=== PATIENT | male | born 1975 | race Caucasian/White ===

== ENCOUNTER → 2020-06-04 11:03 | Outpatient (CLI) | payer BC, SELFPAY ==
[2020-06-05 00:42] LABS: SARS-CoV-2 RNA PCR Negative
== END ==
PROVIDERS: PCP Physician Assistant; Visit Provider Physician Assistant
DX: R05 Cough (principal); Z20.822 Contact with and (suspected) exposure to COVID-19
CPT/HCPCS: C9803; U0003; U0005

== ENCOUNTER → 2020-09-28 03:21 | Outpatient (CLI) | payer BC, SELFPAY ==
[2020-09-28 18:53] LABS: SARS-CoV-2 RNA PCR Negative
== END ==
PROVIDERS: PCP Physician Assistant; Visit Provider Physician Assistant
DX: R05 Cough (principal); Z20.822 Contact with and (suspected) exposure to COVID-19
CPT/HCPCS: C9803; U0003; U0005

== ENCOUNTER 2022-12-08 10:02 | Outpatient (CLI) | payer BC, SELFPAY ==
--- NOTE | ~2022-12-08 | XR_ITS ---
EXAMINATION: XR chest 2V 12/08/2022 10:48 INDICATION: Cough for one weeks PROCEDURE: 2 view chest COMPARISON: 02/16/2020 FINDINGS: The lungs are clear. The cardiomediastinal silhouette is within normal limits. There are no pleural effusions. There is no pneumothorax suspected. IMPRESSION: 1: NO ACUTE CARDIOPULMONARY DISEASE. Reviewed, dictated and finalized at location B.
== END 2022-12-08 10:03 | disposition home or self-care (01) ==
PROVIDERS: PCP Physician Assistant; Visit Provider Physician Assistant
DX: R05.9 Cough, unspecified (principal)
CPT/HCPCS: 71046

== ENCOUNTER 2023-01-20 10:40 | Outpatient (CLI) | payer BC, SELFPAY ==
--- NOTE | ~2023-01-20 | XR_ITS ---
EXAMINATION: XR chest 2V 01/20/2023 11:03 INDICATION: Cough. PROCEDURE: 2 view chest COMPARISON: 12/08/2022 FINDINGS: Interval development of left lower lobe airspace consolidation. The cardiomediastinal silho uette is within normal limits. There are no pleural effusions. There is no pneumothorax suspected. IMPRESSION: 1: Left lower lobe airspace consolidation, suspicious for developing pneumonia. Reviewed, dictated and finalized at location L. HIATRIC ORDERLY IMPRESSION: 1: Left lower lobe airspace consolidation, suspicious for developing pneumonia .
== END 2023-01-20 10:41 | disposition home or self-care (01) ==
PROVIDERS: PCP Physician Assistant; Visit Provider Physician Assistant
DX: R05.9 Cough, unspecified (principal); R91.8 Other nonspecific abnormal finding of lung field
CPT/HCPCS: 71046

== ENCOUNTER 2024-03-26 11:56 | Emergency (ER) | payer OTHER, SELFPAY ==
--- NOTE | ~2024-03-26 | XR_ITS ---
EXAMINATION: XR finger 4th LT min 2V DATE: 03/26/2024 12:31 INDICATION: Left fourth finger injury TECHNIQUE: Dorsal palmar, lateral and 2 oblique views of the left fourth digit were obtained COMPARISON: None FINDINGS: Normal alignment. Nondisplaced spiral versus oblique fracture of the diaphysis of the left fourth mid dle phalanx. The fracture lines in. Extending to near the proximal and distal articular surface canno t exclude involvement of one of the articular surfaces of the normal discrete cortical discontinuity or incongruity identified. No other fractures identified. Joint spaces are normal. Mild soft tissue s welling about the fourth digit. IMPRESSION: 1. Nondisplaced spiral versus oblique fracture of the left fourth middle phalanx potentially with inv olvement of the proximal and/or distal articular surfaces. Reviewed, dictated and finalized at location A. [employer] IMPRESSION: 1. Nondisplaced spiral versus oblique fracture of the left fourth middle phalan x potentially with involvement of the proximal and/or distal articular surfaces .
[2024-03-26 12:14] VITALS: BP 149/82; PULSE 101; RESP 16; TEMP 37.3; O2SAT 97
--- NOTE | 2024-03-26 12:44 | ED.UPPEXIN ---
HPI - Extremity Injury (Upper) General Chief Complaint: Extremity Injury, Upper Stated Complaint: L 4TH FINGER INJURY Time Seen by Provider: 03/26/24 12:52 Source: patient and RN notes reviewed Mode of arrival: ambulatory Limitations: no limitations History of Present Illness HPI narrative: 48-year-old male presents with concern for injury to the 4th finger of the left hand. Reports he was napping his son in to his car seat when his finger got stuck and he pulled it out and since then he has had pain. This happened 1 week ago and he has been wearing a splint. He reports no pain when the finger is still, reports pain with bending it or when he accidentally bumps it. He denies decreased strength, sensation, range of motion MD complaint: injury to: left and finger Related Data Allergies Allergy/AdvReac Type Severity Reaction Status Date / Time Penicillins Allergy Unknown Unknown Verified 03/26/24 12:46 Sulfa (Sulfonamide Allergy Unknown Unknown Verified 03/26/24 12:46 Antibiotics) Review of Systems Review of Systems: CONSTITUTIONAL: Denies malaise, chills, sweats, or fever. SKIN: Denies rash or itching, open skin, laceration, abrasion, redness, warmth, swelling. MUSCULOSKELETAL: Reports left 4th finger pain NEUROLOGIC: Denies numbness, weakness All systems reviewed & are unremarkable except as noted in HPI and below PMFSH Past Medical History Medical History (Updated 03/26/24 @ 12:56 by Gerda Galvez NP) Moderate persistent asthma Family History Family History (System 04/30/21 @ 15:53 by Carlos Sanders) Grandparent Diabetes mellitus Family history of cardiovascular disease Family history of emphysema Family history of congestive heart failure Family history of blood dyscrasia Social History Social History (System 04/30/21 @ 15:53 by Carlos Sanders) Smoking status: Never smoker Alcohol intake: never Comments At time of signature, agree with nursing past medical, surgical, social and family history. There is no relevant family history pertinent to the presenting complaint Exam Narrative: GENERAL: Well-appearing, well-nourished, and in no acute distress. HEAD: Normocephalic EYES: PERRLA, conjunctivae clear NECK: Supple. CHEST: Speaks in full sentences. No respiratory distress. HEART: Regular rate and rhythm. Normal and equal peripheral pulses. EXTREMITIES: 4th digit of left hand has grossly normal strength and sensation. Range of motion grossly normal. No clubbing, cyanosis, or edema noted. Mid digit tenderness. Skin intact. Normal digital cascade with flexion of fingers, median, ulnar and radial nerve intact. Normal sensation of each side of finger. No scissoring. Normal thumb opposition. Good capillary refill and radial pulse. Distal capillary refill less than 3 seconds. SKIN: Warn, dry, intact, pink. No rash NEURO: Alert and oriented x3. PSYCH: Normal mood and affect Course Course Emergency Course: Patient is aware of diagnosis, understands and agrees to treatment plan. Anticipatory guidance given. Patient agrees to follow-up as directed and is aware of reasons to seek care at the emergency department. Portions of this record may have been created with voice recognition software Level of Care: [facility] Visit Vital Signs Vital signs: Vital Signs Temperature 99.1 F 03/26/24 12:14 Pulse Rate 101 H 03/26/24 12:14 Respiratory Rate 16 03/26/24 12:14 Blood Pressure 149/82 H 03/26/24 12:14 Pulse Oximetry 97 03/26/24 12:14 Temperature 99.1 F 03/26/24 12:14 Pulse Rate 101 H 03/26/24 12:14 Respiratory Rate 16 03/26/24 12:14 Blood Pressure 149/82 H 03/26/24 12:14 Pulse Oximetry 97 03/26/24 12:14 Reviewed. MDM - Extremity Injury (Upper) MDM Narrative Medical decision making narrative: I evaluated this patient in the psychiatric. History is obtained from patient who is an independent historian and physical exam was performed.? Available medical records were reviewed. ? Exam findings and relevant testing show no acute concerns or changes; patient is non-toxic appearing and is in no distress. ? Differential diagnosis and treatment plan were discussed with the patient. Patient agrees with discussion and after shared medical decision making agrees with plan of care. All questions were answered to the patient's satisfaction. Patient is appropriate for outpatient treatment and follow-up. Imaging Data My impression: Images reviewed, interpreted by radiologist, agree, see report. Radiologist's impression: EXAMINATION: XR finger 4th LT min 2V DATE: 03/26/2024 12:31 INDICATION: Left fourth finger injury TECHNIQUE: Dorsal palmar, lateral and 2 oblique views of the left fourth digit were obtained COMPARISON: None FINDINGS: Normal alignment. Nondisplaced spiral versus oblique fracture of the diaphysis of the left fourth middle phalanx. The fracture lines in. Extending to near the proximal and distal articular surface cannot exclude involvement of one of the articular surfaces of the normal discrete cortical discontinuity or incongruity identified. No other fractures identified. Joint spaces are normal. Mild soft tissue swelling about the fourth digit. IMPRESSION: 1. Nondisplaced spiral versus oblique fracture of the left fourth middle phalanx potentially with involvement of the proximal and/or distal articular surfaces. Critical Care Time Critical Care Time Critical Care Time: No Discharge Plan Discharge Clinical Impression: Finger fracture, left Patient Disposition: Home, Self-Care Condition: Stable Instructions: Finger Fracture (ED) Additional Instructions: Please rest, ice and elevate the affected extremity. Please take Motrin 600mg every 8 hours, as needed, for pain (take with food). Follow up with Orthopedic Surgery in 1-2 days for further evaluation - please call for an appointment. Keep splint dry and on. Please go to ER immediately for increased pain, tingling/numbness, swelling, redness, and fever Patient Language: Arabic Prescriptions: No Action montelukast 10 mg tablet 10 mg PO DAILY Qty: 90 0RF prednisone 20 mg tablet 40 mg PO DAILY Qty: 10 0RF Advair HFA 115-21 mcg/actuation HFA aerosol inhaler 1 puff INHALATION BID Qty: 12 3RF ipratropium-albuterol [Combivent Respimat] 20-100 mcg/actuation mist See Rx Instructions .ROUTE .COMPLEX Qty: 12 0RF Dose Instruction: INHALE 1 PUFF BY MOUTH TWICE A DAY, SPACE EVENLY DURING WAKING HOURS Rx Instructions: INHALE 1 PUFF BY MOUTH TWICE A DAY, SPACE EVENLY DURING WAKING HOURS Follow-up/Referrals: Clarence Aleman MD [Physician] - Benson,TORIE Tovar [Primary Care Provider] - Time of Disposition: 12:56
== END 2024-03-26 13:15 | disposition home or self-care (01) ==
PROVIDERS: Emergency Provider Nurse Practitioner; PCP Physician Assistant
DX: S62.655A Nondisplaced fracture of middle phalanx of left ring finger, initial encounter for closed fracture (principal); X58.XXXA Exposure to other specified factors, initial encounter; J45.909 Unspecified asthma, uncomplicated
CPT/HCPCS: 73140; 99213; G0463

== ENCOUNTER 2024-04-12 11:28 | Outpatient (CLI) | payer OTHER, SELFPAY ==
--- NOTE | ~2024-04-12 | XR_ITS ---
PA, oblique, and lateral views of the left fourth finger CLINICAL HISTORY: Middle phalanx fracture COMPARISON: 03/26/2024 FINDINGS: Oblique, nondisplaced fracture the fourth middle phalanx is unchanged from prior exam. Stab le osseous alignment. Joint space is intact. Soft tissues are unremarkable. IMPRESSION: Stable nondisplaced oblique fracture of the fourth middle phalanx. Reviewed, dictated and finalized at location . R SAMPLER
--- OUTSIDE RECORDS SUMMARY | 2024-04-12 12:47 | XMS_ITS | Data Portability ---
Author Organization [facility] [employer], Main Office Address [address] [place] [address] Care Team Providers Care Manager Pe Name Role Phone COOPERLULY ADEN Primary Care Provider [phone] LULY AREVALO Referring Provider [phone] Assessment No assessment recorded. Plan of Treatment Reminders Order Date Submit Date Provider Last Modified By Organization Details Last Modified Time Details Appointments None recorde d. Lab rapid flu (A+B) 023 01/17/20 23 [email or web address] [facility] Monzon, [address], [place], [address], 13:09:09 Referral None recorde d. Procedures None recorde d. Surgeries None recorde d. Imaging None recorde d. Medication Orders None recorde d. Patient TargetsNo targets recorded. Patient InstructionsNo instructions recorded. Reason for Referral None Reported. Results Created Date Observation Date Name Description Value Unit Range Abnormal Flag Note LastModifiedBy Organization Detail LastModifiedTime 01/17/20 23 01/16/2023 rapid flu (A+B) Flu A negati ve Not Available [facility] [place] [address], [place], [address], 01/16/2023 13:09:03 01/17/20 23 01/16/2023 rapid flu (A+B) Flu B negati ve Not Available [facility] [place] [address], [place], [address], 01/16/2023 13:09:03 12/09/19 23 12/08/2022 XR, chest , 2 view No observ ation record ed. [email or web address] [facility] [address], [place], [address], 12/08/2022 16:58:33 01/21/20 23 01/20/2023 XR, chest , 2 view No observ ation record ed. [email or web address] Not Available 01/20 17:15:50 Result Notes None recorded. Problems Name Problem SNOMED Code Status Onset Date Resolution Date Notes Provider Name and Address Organization Details Recorded Time Lesion of skin of foot 7436968374382 08 Active 2020 Not Available [facility] 3 21:32:33 Excessive belching 123186178 Active 2022 Not Available [facility] 3 21:32:33 Insomnia 340345772 Active 2022 Not Available [facility] 3 21:32:33 Asthma 777589349 Active 2019 Not Available [facility] 3 21:32:33 Cough 89807890 Active 2021 Not Available [facility] 3 21:32:33 Upper respirator y infection 53891438 Active 2021 Not Available [facility] 3 21:32:33 Sleep apnea 01303812 Active 2019 Not Available [facility] 3 21:32:33 Obstructiv e sleep apnea syndrome 78488992 Active 2022 Not Available [facility] 3 21:32:33 Skin lesion 46550818 Active 2022 Not Available [facility] 3 21:32:34 COVID-19 520798235 Active 2022 MILKA Callahan [address], [facility] [address], [place], [address] , [facility] 3 11:50:56 Congestion of nasal sinus 91114822 Active 2022 MILKA Callahan [address], [place], [address] , [facility] [employer] [facility] [employer] 3 09:27:20 Fever 440613434 Active 2022 MILKA Callahan [address], [place], [address] , [facility] [employer] [facility] [employer] [facility] 3 13:08:59 Pneumonia 622726717 Active 2022 MILKA Callahan [address], [facility] [address], [place], [address] , [facility] [employer] [facility] [employer] [facility] 3 16:57:29 Problem Notes None recorded. Procedures Surgical History Date Name Laterality Status Provider Name and Address Organization Details Recorded Time open reduction of fracture of elbow with internal fixation completed Not Available [facility] 04/30/2022 21:31:10 procedure on lung completed Not Available [facility] 04/30/2022 21:31:10 Imaging Results Imaging Date Name Status LastModified by Organiz ation Details LastModified Time 12/08/2022 XR, chest, 2 view completed [email or web address] [facility] [address], [place], [address], 12/08/2022 16:58:33 01/20/2023 XR, chest, 2 view completed [email or web address] Information not available 01/20/2023 17:15:50 Procedure Notes None recorded. Medical Equipment None Reported. Allergies Allergen ID Allergen Name Allergen Category Reaction Reaction Severity Criticality Documentation Date Start Date Code Code System Note Provider Name and Address Organization Details Recorded Time 92114 Substance with sulfonami de structure and antibacte rial mechanism of action (substanc e) medicatio n Not available Not available Not available 04/30/2022 36518 8003 SNOMED Not Available [facility] 3 21:34:23 61113 Product containin g penicilli n and antibioti c (product) medicatio n rash Not available Not available 04/30/2022 80432 05 SNOMED Not Available [facility] 3 21:34:23 Medications Name Sig Start Date Stop Date Status Note LastModified by Organization Details LastModified Time doxycycline hyclate 100 mg capsule TAKE 1 CAPSULE BY MOUTH TWICE A DAY WITH MEALS active Not Available Not Available No t Available albuterol sulfate 2.5 mg/3 mL (0.083 %) solution for nebulizatio n Inhale 3 mL every 4-6 hours by nebulizat ion route as needed. active Not Available Not Available No t Available azithromyci n 250 mg tablet TAKE 2 TABLETS (500 MG) BY ORAL ROUTE ONCE DAILY FOR 1 DAY THEN 1 TABLET (250 MG) BY ORAL ROUTE ONCE DAILY FOR 4 DAYS 01/20 completed Not Available Not Available Not Available benzonatate 200 mg capsule Take 1 capsule 3 times a day by oral route. 03/12 completed Not Available Not Available Not Available prednisone 20 mg tablet 03/23 completed Not Available Not Available Not Available prednisone 5 mg tablet 03/23 completed Not Available Not Available Not Available hydroxyzine HCl 50 mg tablet Take 1 tablet every day by oral route at bedtime. active Not Available Not Available No t Available benzonatate 100 mg capsule 03/23 completed Not Available Not Available Not Available trazodone 150 mg tablet TAKE 1 TABLET BY MOUTH EVERYDAY AT BEDTIME 06/06 completed Not Available Not Available Not Available prednisone 50 mg tablet TAKE 1 TABLET BY MOUTH EVERY DAY FOR 5 DAYS active Not Available Not Available No t Available montelukast 10 mg tablet TAKE 1 TABLET BY MOUTH EVERY DAY active Not Available Not Available No t Available codeine 10 mg-guaifene sin 100 mg/5 mL oral liquid Take 10 mL as needed by oral route at bedtime. 03/12 completed Not Available Not Available Not Available mupirocin 2 % topical ointment APPLY A SMALL AMOUNT TO THE AFFECTED AREA BY TOPICAL ROUTE every day active Not Available Not Available No t Available levofloxaci n 500 mg tablet TAKE 1 TABLET EVERY 24 HOURS BY ORAL ROUTE active Not Available Not Available No t Available methylpredn isolone 4 mg tablets in a dose pack take as directed active Not Available Not Available No t Available fluticasone propionate 50 mcg/actuati on nasal spray,suspe nsion SPRAY 2 SPRAYS INTO EACH NOSTRIL EVERY DAY active Not Available Not Available No t Available eszopiclone 1 mg tablet TAKE 1 TABLET BY MOUTH EVERY DAY AT BEDTIME active Not Available Not Available No t Available Advair HFA 115 mcg-21 mcg/actuati on aerosol inhaler INHALE 2 PUFFS BY MOUTH TWICE A DAY active Not Available Not Available No t Available Combivent Respimat 20 mcg-100 mcg/actuati on solution for inhalation INHALE 1 PUFF BY MOUTH NEEDED FOR WHEEZING. MAX OF 6 INHALATIO NS IN 24 HOURS. active Not Available Not Available No t Available Wixela Inhub 250 mcg-50 mcg/dose powder for inhalation INHALE 1 PUFF TWICE A DAY BY INHALATIO N ROUTE. 01/01 completed Not Available Not Available Not Available Flucelvax Quad (PF) 60 mcg (15 mcg x 4)/0.5 mL IM syringe active Not Available Not Available N ot Available Paxlovid 300 mg (150 mg x 2)-100 mg tablets in a dose pack 300 mg nirmatrel vir (two 150 mg tablets) with 100 mg ritonavir (one 100 mg tablet) with all 3 tablets taken together orally twice daily for 5 days. 11/29 completed Not Available Not Available Not Available Vitals Date Recorded Body mass index (BMI) Body mass index (BMI) Body mass index (BMI) Body height Body height Body height Body height Oxygen saturation Oxygen saturation in Arterial blood by Pulse oximetry Oxygen saturation Oxygen saturation in Arterial blood by Pulse oximetry Heart rate Heart rate Heart rate Respiratory rate Body temperature Body temperature Body temperature Body weight Body weight Body weight Systolic blood pressure Diastolic blood pressure Systolic blood pressure Diastolic blood pressure Systolic blood pressure Diastolic blood pressure Systolic blood pressure Diastolic blood pressure Provider Name and Address Organization Details Last Updated DateTime 3 44.1 kg/m2 42.3 kg/m2 43.3 kg/m2 172.72 cm 172.72 cm 172.72 cm 172.72 cm 98 % 98 % 97 % 97 % 97 /min 97 /min 110 /min 16 /min 97.7 [degF] 97.8 [degF] 97.5 [degF] 686165. 79 g 037353. 12 g 783231. 83 g 140 mm[Hg] 100 mm[Hg] 110 mm[Hg] 80 mm[Hg] 118 mm[Hg] 80 mm[Hg] 130 mm[Hg] 80 mm[Hg] Not Available [employer] 3 21:31:47 Social History Question Answer Notes LastModified by Organizat ion Details LastModified Time Tobacco Smoking Status Never Smoker Not Available [facility] 04/30/2022 21:30:51 What Is Your Level Of Alcohol Consumption? None [id number] Information not available 04/30/2022 What Is Your Level Of Caffeine Consumption? Occasional [id number] Information not available 04/30/2022 How Much Tobacco Do You Chew? None MIGRATION.[id number] Information not available 04/30/2022 In The 14 Days Before Symptom Onset, Have You Had Close Contact With A Laboratory-confir med COVID-19 While That Case Was Ill? No [id number].[id number] Information not available 04/30/2022 In The 14 Days Before Symptom Onset, Have You Had Close Contact With A Person Who Is Under Investigation For COVID-19 While That Person Was Ill? No MIGRATION.[id number] 2858 Information not available 04/30/2022 What Type Of Diet Are You Following? REGULAR [id number].[id number] 3458 Information not available 04/30/2022 Which Illicit Or Recreational Drugs Have You Used? None MIGRATION.[id number] 2703 Information not available 04/30/2022 Do You Or Have You Ever Used E-cigarettes Or Vape? 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 No MIGRATION.327936 9899 Information not available 04/30/2022 Do You Use Insect Repellent Routinely? No MIGRATION.030590 7197 Information not available 04/30/2022 What Is Your Relationship Status? MIGRATION.144963 4953 Information not available 04/30/2022 Do You Use Your Seat Belt Or Car Seat Routinely? Yes MIGRATION.829276 0982 Information not available 04/30/2022 Do You Have Smoke And Carbon Monoxide Detectors In Your Home? Yes MIGRATION.915567 4965 Information not available 04/30/2022 Do You Or Have You Ever Used Smokeless Tobacco? Never Used Smokeless Tobacco MIGRATION.713755 7238 Information not available 04/30/2022 How Much Tobacco Do You Smoke? No MIGRATION.178902 4452 Information not available 04/30/2022 Do You Use Sunscreen Routinely? Yes MIGRATION.508202 3563 Information not available 04/30/2022 Have You Recently Traveled Abroad? No MIGRATION.669957 3685 Information not available 04/30/2022 Do You Have Any Dietary Restrictions? No MIGRATION.832681 0581 Information not available 04/30/2022 Do You Or Have You Ever Used Any Other Forms Of Tobacco Or Nicotine? No MIGRATION.396953 3659 Information not available 04/30/2022 Sex: Unknown Functional Status Question Answer Note LastModified by Organizat ion Details LastModified Time What is your exercise level? Occasional [id number] Information not available 04/30/2022 Mental Status None recorded. Family History Relationship Description Onset Age of this Age Resolved Age Notes LastModified by Organization Details LastModified Time Maternal Grandfather Heart disease [id number] Not available 04/30/2022 21:31:11 Maternal Grandfather Pulmonary emphysema MIGRATION.138 [id number] Not available 04/30/2022 21:31:11 Paternal Grandfather Heart disease MIGRATION.582 [id number] Not available 04/30/2022 21:31:11 Paternal Grandfather Type 2 diabetes mellitus MIGRATION.596 [id number] Not available 04/30/2022 21:31:11 Sister Type 1 diabetes mellitus MIGRATION.739 [id number] Not available 04/30/2022 21:31:11 Sister Type 2 diabetes mellitus MIGRATION.038 [id number] Not available 04/30/2022 21:31:11 Medical History Condition Response HEADACHES/MIGRAINES Y ENT Y ASTHMA Y Immunizations Vaccine Type Date Status Note Provider Nam e and Address Organization Details Recorded Time COVID-19 vaccine, vector-nr, rS-ChAdOx1, PF, 0.5 mL 1 completed Not Available [facility] 04/30/2022 21:34:19 Influenza, split virus, quadrivalent, preservative 9 completed Not Available [facility] 04/30/2022 21:34:19 Influenza, split virus, quadrivalent, PF 1 completed Not Available [facility] 04/30/2022 21:34:19 Influenza, split virus, quadrivalent, PF 0 completed Not Available [facility] 04/30/2022 21:34:19 Past Encounters Encounter ID Performer Location Encounter Start Date Encounter Closed Date Diagnosis/Indication Diagnosis SNOMED-CT Code Diagnosis ICD10 Code Diagnosis Note [id number] [facility] [place] [address] [place] [address] 07/12/2020 00:00:00 07/12/2020 18:07:52 [id number] [facility] [place] [address] [place] [address] 09/18/2020 00:00:00 09/28/2020 19:46:26 [id number] [facility] [place] [address] [place] [address] 09/27/2020 00:00:00 09/27/2020 09:50:57 [id number] [facility] [place] [address] [place] [address] 12/13/2020 00:00:00 12/14/2020 13:41:37 [id number] [facility] [place] [address] [place] [address] 06/06/2021 00:00:00 06/29/2021 19:31:44 [id number] [facility] [place] [address] [place] [address] 03/27/2022 00:00:00 03/30/2022 10:26:49 [id number] MILKA Callahan [facility] [place] [address] [place] [address] 01/16/2023 12:45:09 01/16/2023 14:14:32 Fever [id number] R50.9 Health Concerns Section Related Observation LastModified by Organization Detai ls LastModified Time None Recorded Concern Status LastModified by Organization Details LastModified Time None Recorded Advance Directives Directive None Recorded Payers Encounter Date Sequence Insurance Name Policy Number Policy Chew Covered Member ID Chew Member ID Guarantor Name 01/16/2023 1 [employer] [id number] E Mehul Mayo [id number] Mehul Mayo Notes Date Note Type Note Provider Name and Address Organization Details Recorded Time 06/06/2021 text/html CoughReported bypatient.Quality:lo ose;productive;harsh ;high pitched noise when breathing Severity:improving Duration:intermitten t; acute (<3 weeks) Onset/Timing:actual date: (yesterday); becomes better throughout the day Context:non-smoker; history of asthma; history of bronchitis Modifying Factors:OTC medication (dayquil/nyquil); inhaler Associated Symptoms:no fever; no chills; no chest pain; no heartburn; no vomiting; no edema; no agitation; no sputum production; no chest wall tenderness; no dyspnea at rest or exertion;wheezing;po st nasal drip;shortness of breath;throat clearing;nasal discharge Not Available [employer] 06/29/2021 19:31:44 03/27/2022 text/html Asthma F/UReport ed bypatient.Quality:we ll-controlled with antiasthmatics Severity:able to sleep during episode; does not interfere with daily activities Status:improving Modifying Factors:avoidance of triggers; compliance with asthma regimen; short-acting beta agonist Associated Symptoms:no fever; no fatigue; no irritability; no cough; normal appetite; no changes in productivity; no shortness of breath Antiasthmatics:compl iant with maintenance asthma medication; no prior adverse reaction(s)Sleep Apnea/snoring F/UReported bypatient.Quality:no loud snoring; no gasping for air; no witnessed apnea; no hyponasal speech; no frequent breathing through the mouth Onset/Timing:resolve d Duration:resolved Severity:does not limit daily activities; no frequent sore throats resulting in excess missed days from school / work per year; no difficulty getting going in the morning; no awakening in the middle of the night with sore throat Location:no enlarged tonsils; no nasal passage blockage; no throat pain; no feeling of tightness in throat; no dryness of mouth; no chest congestion Context:no lack of adequate sleep; no shift work; not currently taking medication to help sleep; no recent weight gain; no recent upper respiratory infection; no recent sick contacts; not worse with environmental exposure; not worse with seasonal allergen exposure; no hypertension; normal sleep hours Aggravating factors:not worse during an upper respiratory infection (a cold); not worse when allergies are active Associated Symptoms:no morning headache; no awakening at night short of breath; no sweating heavily at night; no excessive sleepiness during the day; no suddenly falling asleep during the day; no napping; no impaired work performace; no nasal congestionNotes:on cpap Not Available [facility] 03/30/2022 10:26:49
== END 2024-04-12 11:29 | disposition home or self-care (01) ==
PROVIDERS: PCP Physician Assistant; Visit Provider Plastic Surgery
DX: S62.655A Nondisplaced fracture of middle phalanx of left ring finger, initial encounter for closed fracture (principal); X58.XXXA Exposure to other specified factors, initial encounter
CPT/HCPCS: 73140

== ENCOUNTER 2024-05-03 13:48 | Outpatient (CLI) | payer OTHER, SELFPAY | END 2024-05-03 13:49 | disposition home or self-care (01) | LOC: ANHIMG 13:50 | PROVIDERS: PCP Physician Assistant; Visit Provider Plastic Surgery | DX: S62.653A Nondisplaced fracture of middle phalanx of left middle finger, initial encounter for closed fracture (principal); X58.XXXA Exposure to other specified factors, initial encounter | CPT/HCPCS: 73140 ==

== ENCOUNTER 2024-12-09 09:23 | Outpatient (CLI) | payer OTHER, SELFPAY ==
--- NOTE | 2024-12-09 | EST_ITS ---
Patient Info Name: Mehul Mayo Age: 49 years : 1975 Gender: Male Ht: 67 in Wt: 265 lbs BSA: 2.44 m2 HR: 88 bpm BP: 128 / 74 mmHg Exam Date: 12/09/2024 9:31 AM Patient Status: O Admit Date: 12/09/2024 Exam Type: CA stress philip w NM A regadenoson stress test was performed. Staff Referring Physician: aL Knowlse Attending Provider: La Knowles Exercise Technologist: Mai Lemus Exercise Physician: Jorge Luis Champion DO Summary 1. 1. Negative lexiscan stress test for ischemic ST changes by ECG criteria. 2. 2. Stable hemodynamics throughout the test. 3. 3. Nuclear scan to follow and will be reported separately. Please correlate with it. 4. 4. Patient informed of the above results. Protocol: Lexiscan Stress ECG Details Stage: REST Duration (min): 0 min : 18 sec HR (bpm): 88 SBP (mmHg): --- DBP (mmHg): --- Stage: REST Duration (min): 5 min : 39 sec HR (bpm): 94 SBP (mmHg): 128 DBP (mmHg): 74 Stage: STAGE 1 Duration (min): 1 min : 0 sec HR (bpm): 127 SBP (mmHg): 136 DBP (mmHg): 76 Stage: RECOVERY Duration (min): 1 min : 0 sec HR (bpm): 129 SBP (mmHg): 136 DBP (mmHg): 76 Stage: RECOVERY Duration (min): 2 min : 0 sec HR (bpm): 112 SBP (mmHg): 136 DBP (mmHg): 76 Stage: RECOVERY Duration (min): 3 min : 0 sec HR (bpm): 106 SBP (mmHg): 131 DBP (mmHg): 74 Stage: RECOVERY Duration (min): 4 min : 0 sec HR (bpm): 108 SBP (mmHg): 131 DBP (mmHg): 74 Stage: RECOVERY Duration (min): 5 min : 0 sec HR (bpm): 105 SBP (mmHg): 135 DBP (mmHg): 72 Stage: RECOVERY Duration (min): 5 min : 4 sec HR (bpm): 104 SBP (mmHg): 135 DBP (mmHg): 72 Rest HR: 94 bpm Peak HR: 142 bpm Rest Sys BP: 128 mmHg Peak Sys BP: 136 mmHg Max Pred HR: 172 bpm % Max Pred HR: 83 % Target HR: 146 bpm Max RPP: 19,312 bpm*mmHg Termination Reason: Completed protocol Cardiac Symptoms: Shortness of breath Total Time: 1 min : 0 sec Rest Pascual BP: 74 mmHg Peak Pascual BP: 76 mmHg Total Dose: 0.4 mg Resting ECG Sinus rhythm. Stress ECG No ST changes. Arrhythmias None. Report Signatures
--- NOTE | ~2024-12-09 | NM_ITS ---
EXAMINATION: NM philip stress w perfusion DATE: 12/09/2024 12:08 INDICATION: Dyspnea on exertion TECHNIQUE: Rest images were obtained following intravenous administration of 11.0 mCi Tc99m tetrofosmin (Myoview). The patient was infused intravenously with Lexiscan (Regadenoson). Then, 32.4 mCi Tc99m tetrofosmin (Myoview) was administered intravenously, and stress images were obtained. Data was eliot nstructed into short axis and horizontal and vertical long axis SPECT images. Gated SPECT images were also obtained. COMPARISON: None. FINDINGS: There is no definite reversible or fixed perfusion abnormality to suggest ischemia or infarction. There is normal left ventricular chamber size, wall motion and ejection fraction. Left ventricular ejection fraction measures 69%. IMPRESSION: 1. Normal myocardial perfusion at rest and during stress. 2. Left ventricular ejection fraction measuring 69%. Reviewed, dictated and finalized at location A.
== END 2024-12-09 09:24 | disposition home or self-care (01) ==
PROVIDERS: PCP Physician Assistant; Visit Provider Physician Assistant
DX: R06.09 Other forms of dyspnea (principal)
CPT/HCPCS: 78452; 93017; A9502; J2785